=== PATIENT | male | born 1995 | race Caucasian/White ===

== ENCOUNTER 2017-02-07 09:46 | Day surgery (SDC) | payer OTHER ==
[~2017-02-07] VITALS: Ht 175.3 cm; Wt 77.1 kg
[~2017-02-07 09:46] MED LIST: CEFAZOLIN SOD 1 GM/ ISO 50 ML PREMIX IV ONE
[2017-02-07] MEDS ORDERED: LR 1,000 ML IV.SOLN IV ONE (13:15)
[2017-02-07] MEDS ORDERED: ONDANSETRON HCL 4 MG/2 ML VIAL IVP ONE (13:15)
[2017-02-07] MEDS ORDERED: MIDAZOLAM HCL 5 MG/5 ML VIAL IVP ONE (13:15)
[2017-02-07] MEDS ORDERED: POLYMYXIN 500,000/BACIT.10,000 UNITS in NS IRR 1 L IR ONE (13:48)
[2017-02-07] MEDS ORDERED: D5/0.45 NS 1,000 ML IV SCH (14:09)
[2017-02-07] MEDS ORDERED: HYDROcodone/ACETAMIN 5-325 MG TAB (NORCO/ VICODIN) PO PRN ×2 (14:15)
[2017-02-07] MEDS ORDERED: HYDROmorphone 1 MG INJ. 1 MG/ML AMPUL IVP PRN (14:15)
[2017-02-07 14:56] VITALS: BP_SYST 126
== END 2017-02-07 18:45 | disposition home or self-care (01) ==
LOC: SDS 09:46 → SMU 09:47 → SDS 18:45
PROVIDERS: ATTEND Colon & Rectal Surgery
DX: L05.01 Pilonidal cyst with abscess (principal); Z98.890 Other specified postprocedural states
CPT/HCPCS: 11771; J0690; J2250; J2405; J7120